=== PATIENT | female | born 1990 | race African-American/Black ===

== ENCOUNTER → 2021-09-25 | Emergency (ER) | payer SELFPAY ==
[~2021-09-25] VITALS: Ht 170.2 cm; Wt 82.0 kg
[~2021-09-25] MED LIST: DEXAMETHASONE 10 MG/ML VIAL IV ONE; GADOTERATE MEGLUMINE 5 MMOL/10 ML VIAL IV ONE; LEVETIRACETAM 500MG PREMIX 100 ML IV ONE; MIDAZOLAM HCL 2 MG/2 ML VIAL IV ONE; NALOXONE HCL 0.4 MG/ML 1ML VIAL IV ONE; SODIUM CHLORIDE 0.9% 1,000 ML IV ONE
[2021-09-25 14:39] LABS: BASOPHILS % 0.3 % (0.0-2.0); HEMATOCRIT. 44.7 % (36.0-48.0); HEMOGLOBIN. 15.1 g/dL (12.0-16.0); LYMPHOCYTES % 11.3 % (20.0-50.0); MEAN CORPUSCULAR HEMOGLOBIN 27.9 pg (28.0-32.0); MEAN CORPUSCULAR VOLUME 82.3 fL (81.0-99.0); MEAN PLATELET VOLUME 10.6 fl (7.4-10.4); MONOCYTES % 4.9 % (2.0-8.0); NEUTROPHILS % 83.5 % (40.0-76.0); PLATELET 181 x1000/uL (130-400); RED BLOOD CELL COUNT 5.43 mill/uL (4.2-5.4); RED CELL DISTRIBUTION WIDTH 13.8 % (11.6-14.6)
[2021-09-25 14:42] LABS: CHLORIDE 109 mEq/L (98-107)
[2021-09-25 14:47] LABS: ETHANOL BLOOD < 10 mg/dL
[2021-09-25 19:36] LABS: CLARITY URINE CLEAR (CLEAR); COLOR URINE YELLOW (YELLOW); KETONES URINE 4+ (NEGATIVE); LEUKOCYTE ESTERASE URINE NEGATIVE (NEGATIVE); NITRITE URINE NEGATIVE (NEGATIVE); OCCULT BLOOD URINE NEGATIVE (NEGATIVE); PH URINE 6.5 (4.5-8.0); PROTEIN URINE NEGATIVE (NEGATIVE)
[2021-09-25 19:54] LABS: *AMPHETAMINES SCREEN URINE NEGATIVE (NEGATIVE); *BARBITURATES SCREEN URINE NEGATIVE (NEGATIVE); *COCAINE SCREEN URINE NEGATIVE (NEGATIVE)
[2021-09-25 19:55] LABS: METHADONE URINE SCREEN NEGATIVE (NEGATIVE); OPIATES URINE SCREEN NEGATIVE (NEGATIVE); PHENCYCLIDINE URINE SCREEN NEGATIVE (NEGATIVE)
[2021-09-25 19:56] LABS: *BENZODIAZEPINES SCREEN URINE PRESUMTIVE POSITIVE (NEGATIVE); CANNABINOID URINE SCREEN PRESUMTIVE POSITIVE (NEGATIVE)
[2021-09-25 20:16] LABS: HCG SCREEN NEGATIVE
[2021-09-25 21:10] VITALS: BP 95/51
== END | disposition still patient (30) ==
LOC: ER 14:03 → EDBEDREQSVC 18:22 → ENRESERV 20:07 → CANRESERV 20:07 → CANBEDREQ 09-26 04:07
DX: R41.82 Altered mental status, unspecified (principal); Z20.822 Contact with and (suspected) exposure to COVID-19
CPT/HCPCS: 36415; 70450; 70553; 71045; 74018; 80053; 80305; 80320; 81003; 84443; 84703; 85025; 87426; 96361; 96374; 96375; 96376; 99285; A9577; J1100; J1953; J2250; J2310; J7030; G0480